=== PATIENT | male | born 1985 | race Caucasian/White ===

== ENCOUNTER 2024-04-29 17:20 | Emergency (ER) | payer OTHER, SELFPAY ==
[2024-04-29 17:27] VITALS: BP 87/50
--- NOTE | 2024-04-29 17:27 | ED.GENMED ---
ED Provider Triage
<Joe Sanon Jr., PA-C - Last Filed: 04/29/24 17:30>
-
Patient seen by provider in Triage?: Seen in Triage
Attestation: A medical screening examination has been initiated by a qualified medical provider. Based on the assessment performed at this time, it has been determined that an emergent medical condition may exist and the patient has been informed
that further medical evaluation and possible additional diagnostic testing may be needed.
HPI: 38 y/o M coming from [facility] last evening. Sent in for fluids. While in the urgent care the patient additionally had an episode where he felt lightheaded and passed out. He was sent i via EMS. Initial labs EKG ordered for further
assessment.
GENERAL: Alert , in no apparent distress
EYE: No visual abnormalities.
NECK: Trachea midline
ENT: No visible abnormalities.
LUNGS: No acute respiratory distress
NEUROLOGICAL: Alert and oriented
SKIN: Skin intact. No visible changes.
MUSCULOSKELETAL: Moving extremities normally
PSYCH: Normal and appropriate interaction.
This is a medical evaluation conducted in person to initiate diagnostic evaluation and provide initial therapeutics. Please see further documentation by the treating clinician.
History of Present Illness
<Joe Sanon Jr., PA-C - Last Filed: 04/29/24 17:30>
General
Chief Complaint: Fainting/Passed Out
Time Seen by Provider: 04/29/24 18:40
<Noah Grewal DO - Last Filed: 04/29/24 23:12>
General
Source: patient, spouse and ambulance crew
Exam Limitations: none
Nursing documentation reviewed up to this point in time: agreed with
History of Present Illness
History of Present Illness:
38-year-old male presents emergency department due to multiple episodes of diarrhea and nausea and vomiting. He went to urgent care, and had a syncope episode. EMS found him hypotensive.
Past History
<Joe Sanon Jr., PA-C - Last Filed: 04/29/24 17:30>
Past History
ED Past Medical History: None
ED Past Surgical History: None
Social History
Tobacco: Smoker
Alcohol: Occasional
Personal:
Living: with family
Employment: Employed
Family History
Family History: Other (Noncontributory)
<Noah Grewal DO - Last Filed: 04/29/24 23:12>
Past History
ED Past Surgical History: Other (Oral surgery)
Social History
Drug: None
Review of Systems
<Noah Grewal DO - Last Filed: 04/29/24 23:12>
Review of Systems
Allergies reviewed?: Yes
All Other Systems: Not applicable
Constitutional: Reports no symptoms
EENT: Reports no symptoms
Respiratory: Reports no symptoms
Cardiac: Reports syncope
ABD/GI: Reports nausea, vomiting and diarrhea
: Reports no symptoms
Musculoskeletal: Reports no symptoms
Skin: Reports no symptoms
Neurological: Reports no symptoms
Endocrine: Reports no symptoms
Hematologic/Lymphatic: Reports no symptoms
Psychiatric: Reports no symptoms
Phy Exam
<Noah Grewal DO - Last Filed: 04/29/24 23:12>
Physical Exam
Physical Exam:
Physical Exam
General: no apparent distress, not acutely ill
Neck: supple. no meningeal signs. normal posterior pharynx
Heart: s1/s2 regular rate and rhythm, no murmur. equal radial
pulses.
HEENT: Pupils equal round reactive to light, EOMI
Lungs: no acute respiratory distress. clear bilaterally
Abdomen: normal bowel sounds. not tender. no CVAT
Neuro: alert and oriented. no focal neurological deficits cranial nerves II through XII intact
Skin: no rash
Psychiatric: well kept. interactive and cooperative
Extremities: no edema. no calf tenderness. negative homans. good distal pulses
Course
<Joe Sanon Jr., JUSTIN - Last Filed: 04/29/24 17:30>
Orders/Labs/Results
Orders:
Orders
04/29/24 17:28
0.9% Sodium Chloride 1000 ml [Nss] 1,000 ml IV BOLUS
Ondansetron Injectable [Zofran] 4 mg IV NOW STA
04/29/24 17:29
EKG [Electrocardiogram (*1)] Urgent
Reason for Study: Syncope
EKG- Treatment ONCE
04/29/24 17:41
Complete Blood Count/With Diff Urgent
Comprehensive Metabolic Panel Urgent
Lipase Urgent
Abnormal Lab Results
04/29/24
17:41
WBC 11.0 H 10^3/uL
(4.8-10.8)
MPV 10.9 H fL
(7.4-10.4)
Abs Immat Gran (auto) 0.1 H 10^3/uL
(0-0.05)
Absolute Neuts (auto) 9.6 H 10^3/uL
(1.4-6.5)
Absolute Lymphs (auto) 0.4 L 10^3/uL
(1.2-3.4)
Absolute Monos (auto) 0.9 H 10^3/uL
(0.1-0.6)
Neutrophils % 87.4 H %
(42.2-75.2)
Lymphocytes % 3.3 L %
(20.5-51.1)
BUN 22 H mg/dl
(9-20)
Glucose 142 H mg/dl
(70-99)
04/29/24 17:41
04/29/24 17:41
Vital Signs
Initial and Last Documented VS:
Initial Vital Signs
Temp Pulse Resp BP Pulse Ox
99.3 F 74 20 87/50 100
04/29/24 17:27 04/29/24 17:27 04/29/24 17:27 04/29/24 17:27 04/29/24 17:27
Last Documented Vital Signs
Temp Pulse Resp BP Pulse Ox
99.3 F 78 23 111/65 99
04/29/24 17:27 04/29/24 19:15 04/29/24 19:15 04/29/24 19:00 04/29/24 19:15
<Noah Grewal, DO - Last Filed: 04/29/24 23:12>
Orders/Labs/Results
Orders:
Orders
04/29/24 17:28
0.9% Sodium Chloride 1000 ml [Nss] 1,000 ml IV BOLUS
Ondansetron Injectable [Zofran] 4 mg IV NOW STA
04/29/24 17:29
EKG [Electrocardiogram (*1)] Urgent
Reason for Study: Syncope
EKG- Treatment ONCE
04/29/24 17:41
Complete Blood Count/With Diff Urgent
Comprehensive Metabolic Panel Urgent
Lipase Urgent
Abnormal Lab Results
04/29/24
17:41
WBC 11.0 H 10^3/uL
(4.8-10.8)
MPV 10.9 H fL
(7.4-10.4)
Abs Immat Gran (auto) 0.1 H 10^3/uL
(0-0.05)
Absolute Neuts (auto) 9.6 H 10^3/uL
(1.4-6.5)
Absolute Lymphs (auto) 0.4 L 10^3/uL
(1.2-3.4)
Absolute Monos (auto) 0.9 H 10^3/uL
(0.1-0.6)
Neutrophils % 87.4 H %
(42.2-75.2)
Lymphocytes % 3.3 L %
(20.5-51.1)
BUN 22 H mg/dl
(9-20)
Glucose 142 H mg/dl
(70-99)
04/29/24 17:41
04/29/24 17:41
Vital Signs
Initial and Last Documented VS:
Initial Vital Signs
Temp Pulse Resp BP Pulse Ox
99.3 F 74 20 87/50 100
04/29/24 17:27 04/29/24 17:27 04/29/24 17:27 04/29/24 17:27 04/29/24 17:27
Last Documented Vital Signs
Temp Pulse Resp BP Pulse Ox
99.3 F 78 23 111/65 99
04/29/24 17:27 04/29/24 19:15 04/29/24 19:15 04/29/24 19:00 04/29/24 19:15
<Noah Grewal, DO - Last Filed: 04/29/24 23:12>
MDM/Problems Addressed
Differential Diagnosis Includes:
Dysrhythmia, vasovagal, hypovolemia
MDM/Problems Addressed:
38-year-old male with syncope episode, nausea vomiting and diarrhea, likely viral cause. Syncope likely vasovagal. Patient improved after IV fluids. Tolerating oral fluids. Stable for discharge.
<Noah Grewal, DO - Last Filed: 04/29/24 23:12>
*Pulse Oximetry
Patient hypoxic: no
*EKG
Interpreted by ED Provider?: Yes
EKG Intrepretation Date: 04/29/24
EKG Intrepretation Time: 18:58
Interpretation: normal
Comparison EKG: no comparison EKG present
Heart Rate: 76
Rate: normal
Rhythm: sinus and sinus arrhythmia
Cornelius: normal axis
Interval: normal interval
QRS Pattern: normal QRS
Ischemia: no ischemia
*[employer] Interpretation
Rate: normal
Interpretation: normal
Heart Rate: 80
Rhythm: sinus
*Critical Care Note
Total Time (30-74mins, 75-104mins- exclusive of procedures): Not Applicable
<Noah Grewal, - Last Filed: 04/29/24 23:12>
Patient Management
Social determinants of health affecting care: Living situation and Strong social support
Escalation/DeEscalation of care consider admission/obs:
admit not indicated
ED Attending Note
<Joe Sanon Jr., PA-C - Last Filed: 04/29/24 17:30>
-
Portions of this chart may have been created with voice recognition software.� Occasional wrong word or��sound alike� substitutions may have occurred due to the inherent limitations of voice recognition software.
Discharge Plan
Departure
Patient Disposition: Home (Routine Discharge)
Date of Disposition: 04/29/24
Time of Disposition: 19:13
Patient with high blood pressure during this ER visit?: No
Condition: Good
Discharge Problem:
Syncope
Instructions: Diarrhea in teens and adults, Syncope (Fainting) (DC), Acute Nausea and Vomiting
Prescriptions:
New
ondansetron 4 mg tablet,disintegrating
4 mg PO Q8H PRN (Reason: nausea and vomiting) 4 Days Qty: 7 0RF
Referrals:
Deshaun Leo MD [Family Provider] - Call in 1-3 days for appt
Interventions
Interventions:
*Risk Screen - Suicide Last Done: 04/29/24 17:27
*General Assessment Last Done: 04/29/24 17:27
*Neglect/Abuse Screening Last Done: 04/29/24 17:27
*ED COVID-19 Vaccine History Last Done: 04/29/24 17:42
*Nursing Disposition Last Done: 04/29/24 19:26
ED- Cardiac Assessment Last Done: 04/29/24 17:42
ED- Neurological Assessment Last Done: 04/29/24 17:42
Discharge Date and Time
Discharge Date/Time: 04/29/24 19:27
Print Language: SENEGALESE
[2024-04-29 17:32] VITALS: BP 81/45
[2024-04-29 17:38] VITALS: BP 115/57
[2024-04-29 17:42] VITALS: BMI 29.7
[2024-04-29] MEDS: NSS 1000 IV (17:44)
[2024-04-29 17:52] LABS: % Basophils 0.2 % (0-2); % Eosinophils 0.5 % (0-6); % Immature Granulocytes 0.5 % (0-0.5); % Lymphocytes 3.3 % (20.5-51.1); % Monocytes 8.1 % (1.7-9.3); % Neutrophils 87.4 % (42.2-75.2); Absolute Eosinophils 0.1 10^3/uL (0-0.7); Absolute Immature Granulocytes 0.1 10^3/uL (0-0.05); Absolute Lymphocytes 0.4 10^3/uL (1.2-3.4); Absolute Monocytes 0.9 10^3/uL (0.1-0.6); Absolute Neutrophils 9.6 10^3/uL (1.4-6.5); Hematocrit 47.3 % (39.0-52.0); Hemoglobin 15.7 g/dL (13.0-18.0); Mean Corp Hgb Conc. 33.2 g/dL (33.0-37.0); Mean Corpuscular Hgb 28.3 pg (27.0-31.0); Mean Corpuscular Volume 85.4 fL (80.0-94.0); Mean Platelet Volume 10.9 fL (7.4-10.4); Nucleated Red Blood Cells % 0 % (-); Platelet Count 236 10^3/uL (130-400); Red Blood Cell Count 5.54 10^6/uL (4.70-6.10); Red Cell Dist. Width 13.7 % (11.5-14.5)
[2024-04-29 18:00] VITALS: BP 109/75
[2024-04-29 18:09] LABS: ALT (SGPT) 37 U/L (0-50); AST (SGOT) 23 U/L (17-59); Albumin 4.3 g/dl (3.5-5.0); Alkaline Phosphatase 69 U/L (38-126); Blood Urea Nitrogen 22 mg/dl (9-20); Calcium 8.9 mg/dl (8.4-10.2); Carbon Dioxide 24 mmol/L (22-30); Chloride 101 mmol/L (98-107); Estimated Creatinine Clearance 101 ml/min; Glucose 142 mg/dl (70-99); Lipase 33 U/L (23-300); Potassium 4.2 mmol/L (3.5-5.1); Sodium 136 mmol/L (135-145); Total Bilirubin 0.7 mg/dl (0.2-1.3); Total Protein 6.6 g/dl (6.3-8.2); eGFR > 60.00
[2024-04-29 19:00] VITALS: BP 111/65
== END 2024-04-29 19:27 | disposition home or self-care (01) ==
LOC: EMR 17:20
PROVIDERS: Physician Assistant; EMERGENCY PHYSICIAN Emergency Medicine; FAMILY PHYSICIAN Family Medicine
DX: R55 Syncope and collapse (principal); R11.2 Nausea with vomiting, unspecified; R19.7 Diarrhea, unspecified; F17.200 Nicotine dependence, unspecified, uncomplicated
CPT/HCPCS: 99284; 96360; 80053; 83690; 85025; 93005